=== PATIENT | female | born 1980 | race Caucasian/White ===

== ENCOUNTER 2017-04-07 20:11 | Emergency (ER) | payer BC ==
--- NOTE | ~2017-04-07 | CR2 ---
[facility] A Service of [facility] & [facility] RADIOLOGY TEXT RESULTS PATIENT: DENI ANNA LOCATION: SED : 80 UNIT #: [id number] AGE: [address]: Ernie Chand MD SEX: F ORDER DR: [id number] [place] [id number] E MR#: [id number] #: [id number] NAME: DENI ANNA : 1980 SEX: F STUDY DATE/TIME: 04/07/2017 21:05 UNIT: SED ROOM: STUDY DESCRIPTION: CR Abdomen Acute Series Attending Physician: Ernie Chand M.D. Ordering Physician: Ernie Chand M.D. Primary Care Physician: Jose Minor M.D. MEDICAL IMAGING REPORT This report is preliminary unless electronic signature is present. EXAM Acute abdomen series 3 views HISTORY Abdomen pain for 2 days. Epigastric pain and vomiting. Nausea. FINDINGS Flat and upright views of the abdomen and upright view of the chest demonstrate the bowel gas pattern is normal. Moderate amount of stool in nondistended colon. No free air. Upright view of the chest demonstrates the cardiac size and pulmonary vascularity are normal. No infiltrates or effusions. IMPRESSION Negative. Dictated by... Jared Simon M.D. THIS IS AN ELECTRONICALLY VERIFIED REPORT Jared Simon M.D. at 04/08/2017 2:41 PM DFL/armando TD: 04/08/2017 11:47 JOB #: [id number] MEDICAL IMAGING REPORT Page 1 of 1
[~2017-04-07 20:11] MED LIST: BCP; CELEXA PO; DICYCLOMINE HCL20 MG PO; MACROBID100 M1 PO; SAFYRAL TABLET1 EACH PO; TYLENOL #3 PO; YAZMIN
[2017-04-07 20:58] LABS: BASOPHIL# 0.1 X10e3 (0-0.3); BASOPHIL% 0.5 % (0-2.5); EOSINOPHIL# 0.2 X10e3 (0-0.7); HEMATOCRIT 35.8 % (35.0-45.0); LYMPHOCYTE# 1.3 X10e3 (1.0-3.5); LYMPHOCYTE% 8.2 % (17.0-45.0); MEAN CELL VOLUME 85.2 FL (83-96); MEAN CORPUSCULAR HEMOGLOBIN 28.6 PG (28-34); MEAN CORPUSCULAR HGB CONC 33.6 g/dL (30-36); MONOCYTE# 0.8 X10e3 (0-1.0); MONOCYTE% 5.2 % (3.0-12.0); NEUTROPHIL# 13.1 X10e3 (1.5-7.1); NEUTROPHIL% 85.1 % (40-75); PLATELET COUNT 281 X10e3 (140-420); RED BLOOD COUNT 4.21 X10e (3.90-5.30); RED CELL DISTRIBUTION WIDTH 13.2 % (11.0-15.5); WHITE BLOOD COUNT 15.3 X10e3 (4.0-10.5)
[2017-04-07 21:03] LABS: DIFF IND NO
[2017-04-07 21:10] LABS: BILIRUBIN, DIRECT 0.1 mg/dL (0.0-0.2); BILIRUBIN,INDIRECT 0.2 mg/dL (0.0-0.9); BILIRUBIN,TOTAL 0.3 mg/dL (0.2-2.0); BUN/CREATININE RATIO 12.85; CALCIUM SERUM 8.3 mg/dL (8.4-10.2); CREATININE SERUM 0.7 mg/dL (0.6-1.4); GLOM FILT RATE Estimated 111.5 mL/min (>60); POTASSIUM 3.5 mmol/L (3.5-5.1); PROTEIN TOTAL SERUM 7.7 g/dL (6.0-8.3)
== END 2017-04-07 23:25 | disposition home or self-care (01) ==
LOC: SED 20:11
PROVIDERS: Emergency Medicine
DX: K29.70 Gastritis, unspecified, without bleeding (principal); Z88.0 Allergy status to penicillin; Z88.1 Allergy status to other antibiotic agents
CPT/HCPCS: 36415; 74022; 80048; 80076; 83690; 84703; 85025; 96374; 96375; 99284; C9113; J2270; J2405